=== PATIENT | female | born 1955 | race Caucasian/White ===

== ENCOUNTER → 2022-01-10 | Day surgery (SDC) | payer MEDICARE, OTHER ==
[~2022-01-10] MED LIST: ASPIRIN325 MG PO; DEXAMETHASONE PHOS 24 MG/ML 10ML VIAL ONE; DEXAMETHASONE SOD PHOS INJ 4 MG/ML SDV ONE; FENTANYL CITRATE/PF 100MCG/2 ML INJ ONE; LIDOCAINE HCL 2% LOCAL INJ 5 ML SDV VIAL INJ ONE; MIDAZOLAM HCL 2 MG/2 ML VIAL ONE; OFLOXACIN 0.3% (OTIC SOL) 5 ML BTL ONE; ONDANSETRON HCL INJ 2MG/ML 2ML 2 MG/ML VIAL ONE; OXYBUTYNIN CHLOR5 MG PO; POVIDONE IODINE 0.05% 0.05 % ML PO ONE; PROPOFOL IV EMULSION 10 MG/ML 20 ML VIAL ONE; SEVOFLURANE INHAL SOLN 250 ML PEN BTL ONE
[2022-01-10 08:35] VITALS: BP 128/68
== END | disposition home or self-care (01) ==
LOC: OR 05:37
PROVIDERS: ATTEND Otolaryngology Otolaryngology/Facial Plastic Surgery
DX: H91.21 Sudden idiopathic hearing loss, right ear (principal); H93.11 Tinnitus, right ear; G47.33 Obstructive sleep apnea (adult) (pediatric); E66.9 Obesity, unspecified; R42 Dizziness and giddiness; Z88.0 Allergy status to penicillin; Z79.02 Long term (current) use of antithrombotics/antiplatelets; Z79.82 Long term (current) use of aspirin; Z86.73 Personal history of transient ischemic attack (TIA), and cerebral infarction without residual deficits
CPT/HCPCS: 69399; 69436; 71046; J1100; J2001; J2405; J2704